=== PATIENT | male | born 1970 ===

== ENCOUNTER 2018-01-22 04:23 | Observation (INO) | payer OTHER ==
--- NOTE | 2018-01-22 04:39 | ED PDOC ---
Arrival/HPI - General Time Seen by Provider: 01/22/18 04:29 Historian: Patient - History of Present Illness Narrative History of Present Illness (Text): 01/22/18 04:32 47 year old male, with no significant past medical history, presents to the emergency department evaluation of pain and swelling to the mouth and left facial area. Patient state he wears dentures and removes them because of the pain. Patient states the swelling and pain extends to below his eye and neck area. He states he had a fever yesterday evening. Patient denies any chills, difficulty swallowing, chest pain, shortness of breath, nausea, vomiting, diarrhea, urinary symptoms, back pain, headache, dizziness, or any other complaints. Symptom Onset: Gradual Symptom Course: Worsening Activities at Onset: Light Context: Home Past Medical History - Provider Review Nursing Documentation Reviewed: Yes Family/Social History - Physician Review Nursing Documentation Reviewed: Yes Family/Social History: No Known Family HX Allergies/Home Meds Allergies/Adverse Reactions: Allergies No Known Allergies Allergy (Verified 01/22/18 04:37) Home Medications: Home Meds Medication Instructions Recorded Confirmed No Known Home Med 01/22/18 01/22/18 Review of Systems - Physician Review All systems were reviewed & negative as marked: Yes - Review of Systems Constitutional: Fevers. absent: Other (chills) ENT: Other ((+)pain and swelling to the mouth/left facial area. (-)difficulty swallowing) Respiratory: absent: SOB Cardiovascular: absent: Chest Pain Gastrointestinal: absent: Diarrhea, Nausea, Vomiting Genitourinary Male: absent: Dysuria, Frequency, Hematuria Musculoskeletal: absent: Back Pain Neurological: absent: Headache, Dizziness Physical Exam Vital Signs Reviewed: Yes Vital Signs Temp Pulse Resp BP Pulse Ox 01/22/18 04:37 98 F 91 H 19 134/103 H 98 Temperature: Afebrile Blood Pressure: Hypertensive Pulse: Regular Respiratory Rate: Normal Appearance: Positive for: Well-Appearing, Non-Toxic, Comfortable Pain Distress: None Mental Status: Positive for: Alert and Oriented X 3 - Systems Exam Head: Present: Atraumatic, Normocephalic, Other (Swelling to the left facial area) Pupils: Present: PERRL Extroacular Muscles: Present: EOMI Conjunctiva: Present: Normal Mouth: Present: Moist Mucous Membranes, Other (swelling noted to the left upper palate oral mucosa. ) Pharnyx: No: ERYTHEMA Neck: Present: Normal Range of Motion Respiratory/Chest: Present: Clear to Auscultation, Good Air Exchange. No: Respiratory Distress, Accessory Muscle Use Cardiovascular: Present: Regular Rate and Rhythm, Normal S1, S2. No: Murmurs Abdomen: No: Tenderness, Distention, Peritoneal Signs Back: Present: Normal Inspection Upper Extremity: Present: Normal Inspection. No: Cyanosis, Edema Lower Extremity: Present: Normal Inspection. No: Edema Neurological: Present: GCS=15, CN II-XII Intact, Speech Normal Skin: Present: Warm, Dry, Normal Color. No: Rashes Psychiatric: Present: Alert, Oriented x 3, Normal Insight, Normal Concentration Medical Decision Making ED Course and Treatment: 01/22/18 04:33 Impression: 47 year old male presents complaining of pain and swelling to the mouth and left facial area. Plan: -- Labs -- Reassess and disposition Progress Notes: 01/22/18 05:30 Case discussed with medical staffing coordinator and Dr. Keller who is aware and agrees with the plan. Accepts patient into hospitalist service. - Lab Interpretations Lab Results: 01/22/18 04:50 Lab Results 01/22/18 04:50: WBC 8.9, RBC 5.19, Hgb 15.0, Hct 43.0, MCV 82.9, MCH 28.9, MCHC 34.9, RDW 13.4, Plt Count 351, MPV 8.9 I have reviewed the lab results: Yes - Medication Orders Current Medication Orders: Clindamycin Phosphate 600 mg/ (Sodium Chloride) 54 mls @ 108 mls/hr IV STAT STA PRN Reason: Protocol Stop: 01/22/18 05:55 Discontinued Medications Ketorolac Tromethamine (Toradol) 30 mg IVP ONCE ONE Stop: 01/22/18 05:26 - Scribe Statement The provider has reviewed the documentation as recorded by the Josh Nieto Provider Scribe Attestation: All medical record entries made by the Scribe were at my direction and personally dictated by me. I have reviewed the chart and agree that the record accurately reflects my personal performance of the history, physical exam, medical decision making, and the department course for this patient. I have also personally directed, reviewed, and agree with the discharge instructions and disposition. Disposition/Present on Arrival - Present on Arrival Any Indicators Present on Arrival: No History of DVT/PE: No History of Uncontrolled Diabetes: No Urinary Catheter: No History of Decub. Ulcer: No History Surgical Site Infection Following: None - Disposition Have Diagnosis and Disposition been Completed?: Yes Diagnosis: Oral abscess, Facial abscess Disposition: HOSPITALIZED Disposition Time: 05:34 Patient Plan: Observation Condition: STABLE
[2018-01-22 05:17] LABS: MEAN CELL VOLUME 82.9 fl (80.0-105.0); MEAN CORPUSCULAR HEMOGLOBIN 28.9 pg (25.0-35.0); MEAN CORPUSCULAR HGB CONC 34.9 g/dl (31.0-37.0); MEAN PLATELET VOLUME 8.9 fl (7.0-11.0); RBC 5.19 10^6/uL (3.5-6.1); RED CELL DISTRIBUTION WIDTH 13.4 % (11.5-14.5); WHITE BLOOD COUNT 8.9 10^3/ul (4.5-11.0)
[2018-01-22 05:37] LABS: ALB/GLOB RATIO 1.2 (1.1-1.8)
--- NOTE | 2018-01-22 06:22 | CP.PCM.HP ---
<JimPeggy - Last Filed: 01/22/18 19:59> History of Present Illness - History of Present Illness History of Present Illness: HISTORY & PHYSICAL NOTE FOR HOSPITALIST TEAM Peggy Fernandez D.O. PGY-1 CC: "Gum and facial pain and swelling" 47 y/o M with pmhx of "dental infections" presents to ED with complaints of hard palate pain and swelling for the past 3 days. He reports feeling 9/10 dull pain in the superior L portion of his left involving the gum with onset beginning 3 days ago and progressively worsening. He noticed his face has been more swollen than usual, and is tender around L maxillary region. He reports that he noticed some blood from the area a few days ago. He reports he had subjective fevers and chills when the pain began. He has a history of "dental infections" involving the central incisors of the upper arch several years ago that required removal by his dentist. He wears dentures at home that he claims he cleans regularly with listerine. He denies any recent trauma to the area. He denies fevers, chills, headache, dizziness, nausea, vomiting, chest pain, palpitations, constipation, diarrhea. PMH: Denies All: NKDA PSH: Denies SH: 20 pack year cigarette history. Quit 5 years ago. Denies alcohol or illicit drug use. Works as truck driver instructor. Meds: None PMD: Doesn't see physician regularly Present on Admission - Present on Admission Any Indicators Present on Admission: No Review of Systems - Review of Systems Review of Systems: as per HPI Past Patient History - Infectious Disease Hx of Infectious Diseases: None - Past Social History Smoking Status: Former Smoker - PSYCHIATRIC Hx Substance Use: Yes (cocaine and marijuana) - SURGICAL HISTORY Hx Surgeries: No - ANESTHESIA Hx Anesthesia: No Meds Allergies/Adverse Reactions: Allergies Allergy/AdvReac Type Severity Reaction Status Date / Time No Known Allergies Allergy Verified 01/22/18 04:37 Physical Exam - Constitutional Appears: Well, Non-toxic, No Acute Distress - Head Exam Head Exam: NORMAL INSPECTION, NORMOCEPHALIC - Eye Exam Eye Exam: EOMI, Normal appearance - ENT Exam ENT Exam: Mucous Membranes Moist Additional comments: Swelling along anterior upper arch. No purulence or drainage noted. No tonsillar abscess/purulence noted. Maxillary tenderness to palpation. No tenderness to palpation along mandible - Neck Exam Neck exam: Positive for: Tenderness (submandibular). Negative for: Meningismus - Respiratory Exam Respiratory Exam: Clear to Auscultation Bilateral, NORMAL BREATHING PATTERN - Cardiovascular Exam Cardiovascular Exam: REGULAR RHYTHM, +S1, +S2 - GI/Abdominal Exam GI & Abdominal Exam: Soft. absent: Tenderness - Extremities Exam Extremities exam: Positive for: normal inspection. Negative for: calf tenderness - Back Exam Back exam: NORMAL INSPECTION - Neurological Exam Neurological exam: Alert, Oriented x3 - Psychiatric Exam Psychiatric exam: Normal Affect, Normal Mood - Skin Skin Exam: Dry, Normal Color, Warm Results - Vital Signs Recent Vital Signs: Last Vital Signs Temp 98 F 01/22/18 04:37 Pulse 91 H 01/22/18 04:37 Resp 19 01/22/18 04:37 BP 134/103 H 01/22/18 04:37 Pulse Ox 98 01/22/18 04:37 - Labs Result Diagrams: 01/22/18 04:50 01/22/18 04:50 Labs: Laboratory Results - last 24 hr 01/22/18 01/22/18 04:50 04:50 WBC 8.9 RBC 5.19 Hgb 15.0 Hct 43.0 MCV 82.9 MCH 28.9 MCHC 34.9 RDW 13.4 Plt Count 351 MPV 8.9 Albumin/Globulin Ratio 1.2 Assessment & Plan - Assessment and Plan (Free Text) Assessment: 47 y/o M with a history of dental infections involving central incisors. Pt wears dentures for the front teeth that he claims he cleans regularly with listerine. He received IV clindamycin in ED and is continuing treatment Plan: Upper palatal abscess Continue IV clindamycin f/u CBC f/u maxillofacial CT scan f/u blood cultures Consult infectious disease. f/u recs Consult ENT. f/u recs Diet/DVT/GI: dysphagia diet/LVX/Ptx <Candis Keller - Last Filed: 01/23/18 06:30> Results - Vital Signs Recent Vital Signs: Last Vital Signs Temp 98.4 F 01/22/18 14:00 Pulse 77 01/22/18 14:00 Resp 20 01/22/18 14:00 BP 130/88 01/22/18 14:00 Pulse Ox 98 01/22/18 14:00 - Labs Result Diagrams: 01/22/18 04:50 01/22/18 04:50 Labs: Laboratory Results - last 24 hr 01/22/18 01/22/18 01/22/18 04:50 04:50 04:50 Sodium 138 Potassium 4.7 Chloride 102 Carbon Dioxide 27 Anion Gap 14 BUN 21 Creatinine 0.9 Est GFR ( Amer) > 60 Est GFR (Non-Af Amer) > 60 Random Glucose 127 H Calcium 9.2 Phosphorus 3.1 Magnesium 2.4 H Total Bilirubin 0.4 AST 110 H ALT 86 H Alkaline Phosphatase 167 H Total Protein 7.4 Albumin 4.1 Globulin 3.3 Urine Opiates Screen Urine Methadone Screen Ur Barbiturates Screen Ur Phencyclidine Scrn Ur Amphetamines Screen U Benzodiazepines Scrn U Oth Cocaine Metabols U Cannabinoids Screen Hepatitis A IgM Ab Negative Hep Bs Antigen Negative Hep B Core IgM Ab Negative Hepatitis C Antibody Negative 01/22/18 12:27 Sodium Potassium Chloride Carbon Dioxide Anion Gap BUN Creatinine Est GFR ( Amer) Est GFR (Non-Af Amer) Random Glucose Calcium Phosphorus Magnesium Total Bilirubin AST ALT Alkaline Phosphatase Total Protein Albumin Globulin Urine Opiates Screen Negative Urine Methadone Screen Negative Ur Barbiturates Screen Negative Ur Phencyclidine Scrn Negative Ur Amphetamines Screen Negative U Benzodiazepines Scrn Negative U Oth Cocaine Metabols Positive H U Cannabinoids Screen Positive H Hepatitis A IgM Ab Hep Bs Antigen Hep B Core IgM Ab Hepatitis C Antibody Attending/Attestation - Attestation I have personally seen and examined this patient.: Yes I have fully participated in the care of the patient.: Yes I have reviewed all pertinent clinical information: Yes Notes (Text): 01/23/18 06:29 Patient was seen when he was in the ER. Medical record was reviewed. Agree with history , physical examination , assessment and plan.
[2018-01-22 06:39] LABS: ALBUMIN 4.1 g/dL (3.0-4.8); ALT/SGPT 86 U/L (7-56); AST/SGOT 110 U/L (17-59); BLOOD UREA NITROGEN 21 mg/dL (7-21); CALCIUM 9.2 mg/dL (8.4-10.5); GFR NON-AFRICAN AMERICAN > 60
[2018-01-22] MEDS: Sodium Chloride 0.9% 1,000 ML IV SCH (06:55)
--- NOTE | 2018-01-22 09:03 | CT ---
Date of service: 01/22/2018 PROCEDURE: CT MAXILLOFACIAL BONES WITHOUT CONTRAST HISTORY: r/o palatal abscess COMPARISON: None available. TECHNIQUE: Contiguous axial CT images of the maxillofacial bones were obtained. Coronal and sagittal reformats were generated. Radiation dose: Total exam DLP = 816.79 mGy-cm. This CT exam was performed using one or more of the following dose reduction techniques: Automated exposure control, adjustment of the mA and/or kV according to patient size, and/or use of iterative reconstruction technique. FINDINGS: NASAL BONES: Chronic appearing bilateral nasal bone fracture deformities.. There is a spur arising from the mid aspect of the nasal septum. Slight rightward deviation of the anterior nasal septum. ORBITS: Unremarkable. PARANASAL SINUSES/ MASTOIDS: Minimal mucosal thickening seen within a few ethmoid air cells as well as the left maxillary sinus. MAXILLA: No definitive evidence of obvious abscess seen within the oral cavity seen on this limited noncontrast exam. The bony maxilla appears intact.. Multiple missing teeth. Dental consultation is recommended MANDIBLE/ TEMPOROMANDIBULAR JOINTS: Unremarkable. SKULL BASE: Unremarkable. TEMPORAL BONES: Middle ears and mastoid grossly unremarkable. OTHER FINDINGS: Orbits and contents unremarkable. Globes intact and lenses appropriately located. There are no retrobulbar hemorrhages or collections. Optic nerves and extraocular musculature unremarkable. IMPRESSION: No definitive evidence of obvious abscess seen within the oral cavity seen on this limited noncontrast exam. The bony maxilla appears intact. Multiple missing teeth. Dental consultation is recommended Minimal mucosal thickening within a few right-sided ethmoid air cells and left maxillary sinus. Chronic appearing bilateral nasal bone fracture deformities.
[2018-01-22] MEDS: Enoxaparin 40 mg Syringe SC SCH (10:45)
--- NOTE | 2018-01-22 10:47 | CP.PCM.CON ---
<Whitley Porter - Last Filed: 01/22/18 12:28> History of Present Illness - History of Present Illness History of Present Illness: PGY3 resident ID consult note for Dr Barraza Reason for consult: hard palate abscess Patient is a 47 y/o Male with PMHx of dental infections presenting with swollen of the gum, upper lip and pain. Patient states he started to experience pain after eating on , decided to come in to the ED last night due to worsening in the pain, and inability to sleep. Admits to previous dental infections, saw dentist in the past and the infection was taking care of with outpatient antibiotics. Patient states he lost his insurance thus has not been able to follow up with dentist. Admits to subjective fever and chills yesterday. Admits to difficulty eating on Monday. Pt states since admission the pain and swelling has improved. PMHx: dental infections PSHx: none FMHx: non contributory Social: former smoker, quit 5 years ago, denies alcohol or illicit drug use. Home meds: none Allergy: NKDA Review of Systems - Constitutional Constitutional: Chills, Fever. absent: Lethargy, Malaise, Night Sweats, Snoring - EENT Eyes: absent: Blurred Vision Ears: absent: Dizziness Nose/Mouth/Throat: Dental Pain, Lip Swelling, Mouth Pain. absent: Nose Pain, Bleeding Gums, Dry Mouth, Dysphagia, Halitosis, Hoarsness, Sore Throat, Throat Swelling, Tongue Swelling, Facial Pain, Neck Mass - Cardiovascular Cardiovascular: absent: Chest Pain, Edema - Respiratory Respiratory: absent: Cough, Dyspnea, Hemoptysis, Wheezing - Gastrointestinal Gastrointestinal: absent: Abdominal Pain, Bloating, Nausea, Vomiting - Genitourinary Genitourinary: absent: Dysuria, Freq UTI - Musculoskeletal Musculoskeletal: absent: Abnormal Gait, Back Pain - Integumentary Integumentary: Swelling. absent: Erythema, Rash, Jaundice - Neurological Neurological: absent: Dizziness, Headaches - Psychiatric Psychiatric: absent: Anxiety, Change in Appetite - Endocrine Endocrine: absent: Polyphagia, Polyuria Past Patient History - Infectious Disease Hx of Infectious Diseases: None - Past Social History Smoking Status: Former Smoker Alcohol: None Drugs: Denies Home Situation {Lives}: With Family - PSYCHIATRIC Hx Substance Use: Yes (cocaine and marijuana) - SURGICAL HISTORY Hx Surgeries: No - ANESTHESIA Hx Anesthesia: No Meds Allergies/Adverse Reactions: Allergies Allergy/AdvReac Type Severity Reaction Status Date / Time No Known Allergies Allergy Verified 01/22/18 04:37 - Medications Medications: Current Medications Enoxaparin Sodium (Lovenox) 40 mg SC DAILY CECIL PRN Reason: Protocol Sodium Chloride (Sodium Chloride 0.9%) 1,000 mls @ 50 mls/hr IV .Q20H CECIL Last Admin: 01/22/18 06:55 Dose: 50 mls/hr Ampicillin Sodium/Sulbactam (Sodium 3 gm/ Sodium Chloride) 100 mls @ 200 mls/ hr IVPB Q6 CECIL PRN Reason: Protocol Pantoprazole Sodium (Protonix Inj) 40 mg IVP DAILY [facility] Physical Exam - Constitutional Appears: No Acute Distress, Older Than Stated Age - Head Exam Head Exam: ATRAUMATIC, NORMAL INSPECTION, NORMOCEPHALIC Additional comments: Multiple missing incisors, + mild erythema, no edema, no purulent drainage noted. - Eye Exam Eye Exam: Normal appearance, PERRL. absent: Scleral icterus - ENT Exam ENT Exam: Mucous Membranes Moist - Neck Exam Neck exam: Positive for: Normal Inspection - Respiratory Exam Respiratory Exam: Clear to Auscultation Bilateral, NORMAL BREATHING PATTERN. absent: Rales, Rhonchi, Wheezes, Respiratory Distress, Stridor - Cardiovascular Exam Cardiovascular Exam: REGULAR RHYTHM, RRR, +S1, +S2. absent: Gallop, JVD, Rubs - GI/Abdominal Exam GI & Abdominal Exam: Normal Bowel Sounds, Soft. absent: Distended, Firm, Rigid , Tenderness - Extremities Exam Extremities exam: Positive for: normal inspection - Back Exam Back exam: NORMAL INSPECTION - Neurological Exam Neurological exam: Alert, Oriented x3 - Psychiatric Exam Psychiatric exam: Normal Affect, Normal Mood - Skin Skin Exam: Dry, Warm Results - Vital Signs Recent Vital Signs: Last Vital Signs Temp 98.6 F 01/22/18 07:23 Pulse 72 01/22/18 07:23 Resp 16 01/22/18 07:23 BP 135/80 01/22/18 07:23 Pulse Ox 99 01/22/18 07:23 - Labs Result Diagrams: 01/22/18 04:50 01/22/18 04:50 Assessment & Plan - Assessment and Plan (Free Text) Assessment: 47 y/o with dental infections with questionable abscess CT of [facility] w/o contrast with no definitive evidence of obvious abscess seen within the oral cavity, multiple missing teeth. Chronic appearing bilateral nasal bone fracture deformities. Plan: 1. Dental cellulites r/o abscess - CT of the [facility] with no contrast, thus unable to see any abscesses - Currently afebrile, no leukocytosis, edema improved with abx, - HIV, blood cultures sent - Continue Unasyn for now, may switch to Augmentin when clinically stable for discharge. - Patient will need to follow up with dentist 2) Transaminitis - hepatitis panel sent, consider abdominal ultrasound. Patient seen, examined and case discussed with Dr Barraza. - Date & Time Date: 01/22/18 Time: 09:50 <Guanako Barraza - Last Filed: 01/22/18 22:33> Meds - Medications Medications: Current Medications Acetaminophen (Tylenol 325mg Tab) 650 mg PO Q4H PRN PRN Reason: Pain, moderate (4-7) Last Admin: 01/22/18 21:03 Dose: 650 mg Enoxaparin Sodium (Lovenox) 40 mg SC DAILY CECIL PRN Reason: Protocol Last Admin: 01/22/18 10:45 Dose: 40 mg Sodium Chloride (Sodium Chloride 0.9%) 1,000 mls @ 50 mls/hr IV .Q20H CECIL Last Admin: 01/22/18 06:55 Dose: 50 mls/hr Clindamycin Phosphate (Clindamycin 300 Mg/50 Ml-D5w) 300 mg in 50 mls @ 106 mls /hr IVPB Q8 CECIL PRN Reason: Protocol Last Admin: 01/22/18 21:03 Dose: 106 mls/hr Pantoprazole Sodium (Protonix Inj) 40 mg IVP DAILY CECIL Last Admin: 01/22/18 10:46 Dose: 40 mg Tramadol HCl (Ultram) 50 mg PO Q8H PRN PRN Reason: Pain, severe (8-10) Last Admin: 01/22/18 19:14 Dose: 50 mg Results - Vital Signs Recent Vital Signs: Last Vital Signs Temp 98.4 F 01/22/18 14:00 Pulse 77 01/22/18 14:00 Resp 20 01/22/18 14:00 BP 130/88 01/22/18 14:00 Pulse Ox 98 01/22/18 14:00 - Labs Result Diagrams: 01/22/18 04:50 01/22/18 04:50 Labs: Laboratory Results - last 24 hr 01/22/18 12:27 Urine Opiates Screen Negative Urine Methadone Screen Negative Ur Barbiturates Screen Negative Ur Phencyclidine Scrn Negative Ur Amphetamines Screen Negative U Benzodiazepines Scrn Negative U Oth Cocaine Metabols Positive H U Cannabinoids Screen Positive H Assessment & Plan - Assessment and Plan (Free Text) Plan: Infectious diseases attending physician addendum Patient discussed with medical insurance claims specialist. I have reviewed the pertinent clinical information. I agree with the above findings, assessment and plan and in addition, will continue Unasyn, R/O dental abscess. Follow up ENT evaluation. Reviewed maxillofacial CT which was not specific for abscess.
[2018-01-22 13:04] LABS: BARBITURATES, UR NEGATIVE (NEGATIVE); BENZODIAZEPINES, UR NEGATIVE (NEGATIVE); OPIATES, UR NEGATIVE (NEGATIVE); PHENCYCLIDINE, UR NEGATIVE (NEGATIVE)
[2018-01-22 15:00] VITALS: RESP 20; BMI 30.5
[2018-01-22 17:33] LABS: HEPATITIS B SURFACE AG Negative (NEGATIVE)
[2018-01-22 17:39] LABS: HEPATITIS A IGM NEGATIVE (NEGATIVE); HEPATITIS B CORE AB NEGATIVE (NEGATIVE)
[2018-01-22 17:51] LABS: HEPATITIS C ANTIBODY NEGATIVE (NEGATIVE)
[2018-01-22] MEDS: Clindamycin in D5W 300 MG/50 ML BAG IVPB SCH (21:03)
[2018-01-22] MEDS ORDERED: Clindamycin 300 MG in Sodium Chloride 0.9% 100 ML IVPB SCH (22:00)
--- NOTE | 2018-01-23 05:24 | CON ---
DATE: 01/22/2018 HISTORY OF PRESENT ILLNESS: A 47-year-old male seen in room 578 secondary to a facial cellulitis and facial pain, seen as a request from Dr. Silvino Arias is seen with a hard palate swelling anterior on the left, most proximal approximately 2 cm of swelling with a developing cellulitis of the mid face on the left. This has been progressing over a period of time with poor dental care. Patient states that he has had no insurance and is now working, was brought to the OR because of facial abscess. White count of 8.9, H and H is 15 and 43, 351 platelets. Calcium 138, 4.7, 102, 27, 21.9, and 127.8. This 47-year-old male with poor dental care has a dental caries at the site of increasing swelling and facial cellulitis, is over IV antibiotics as discussed. I would recommend switching from ampicillin to clindamycin 300 mg every 8, facial swelling with warm compresses and pain medication regimen. Tramadol secondary to history is recommended at this time. Patient recommended 24 to 48 hours of IV therapy to follow facial cellulitis. This is possible accumulation. RECOMMENDATION: For a consultation from Dental/Oral surgery for possible extraction of a partial tooth noted at the abscess site on the hard palate. Patient will be followed and IV therapy continued and monitored to see the progress after [address] into chart. Rommel Taylor DO
--- NOTE | 2018-01-23 06:07 | CP.PCM.PN ---
<Kumar Montoya - Last Filed: 01/23/18 15:55> Subjective - Date & Time of Evaluation Date of Evaluation: 01/23/18 Time of Evaluation: 05:36 - Subjective Subjective: Kumar Montoya DO PGY-1, Internal Medicine Resident. Hospitalist Progress Note Patient seen and examined at bedside. Patient is resting in bed, awake and oriented. No acute events overnight. He reported that facial pain and swelling are getting better.He is able to tolerate diet. Patient denied palpitation, fever, chills or change in bowel movement, N/V Objective - Vital Signs/Intake and Output Vital Signs (last 24 hours): Temp Pulse Resp BP Pulse Ox 98.4 F 77 20 130/88 98 01/22/18 14:00 01/22/18 14:00 01/22/18 14:00 01/22/18 14:00 01/22/18 14:00 Intake and Output: 01/22/18 01/23/18 18:59 06:59 Intake Total 360 Balance 360 - Medications Medications: Current Medications Acetaminophen (Tylenol 325mg Tab) 650 mg PO Q4H PRN PRN Reason: Pain, moderate (4-7) Last Admin: 01/22/18 21:03 Dose: 650 mg Enoxaparin Sodium (Lovenox) 40 mg SC DAILY CECIL; Protocol Last Admin: 01/22/18 10:45 Dose: 40 mg Sodium Chloride (Sodium Chloride 0.9%) 1,000 mls @ 50 mls/hr IV .Q20H CECIL Last Admin: 01/22/18 06:55 Dose: 50 mls/hr Clindamycin Phosphate (Clindamycin 300 Mg/50 Ml-D5w) 300 mg in 50 mls @ 106 mls/hr IVPB Q8 CECIL; Protocol Last Admin: 01/22/18 21:03 Dose: 106 mls/hr Pantoprazole Sodium (Protonix Inj) 40 mg IVP DAILY CECIL Last Admin: 01/22/18 10:46 Dose: 40 mg Tramadol HCl (Ultram) 50 mg PO Q8H PRN PRN Reason: Pain, severe (8-10) Last Admin: 01/22/18 19:14 Dose: 50 mg - Labs Labs: 01/22/18 04:50 01/22/18 04:50 - Constitutional Appears: Well, No Acute Distress - Head Exam Head Exam: ATRAUMATIC, NORMOCEPHALIC - Eye Exam Eye Exam: EOMI, Normal appearance, PERRL Pupil Exam: NORMAL ACCOMODATION, PERRL - ENT Exam Additional comments: left upper maxillary necrotic lesion. improving since seen on admission. no pus or drainage noted left side facial swelling improving TMJ intact upper frontal teeth missing hard palate lesion: intact, no drainage, no erythema lymphadenopathy in left submandibular gland, improving - Neck Exam Neck Exam: Full ROM, Lymphadenopathy, Normal Inspection - Respiratory Exam Respiratory Exam: Clear to Ausculation Bilateral, NORMAL BREATHING PATTERN - Cardiovascular Exam Cardiovascular Exam: REGULAR RHYTHM, +S1, +S2. absent: Murmur - GI/Abdominal Exam GI & Abdominal Exam: Soft, Normal Bowel Sounds. absent: Tenderness - Extremities Exam Extremities Exam: Full ROM, Normal Capillary Refill, Normal Inspection. absent: Joint Swelling, Pedal Edema - Back Exam Back Exam: NORMAL INSPECTION - Neurological Exam Neurological Exam: Alert, Awake, CN II-XII Intact, Normal Gait, Oriented x3 - Psychiatric Exam Psychiatric exam: Normal Affect, Normal Mood - Skin Skin Exam: Dry, Intact, Normal Color, Warm Assessment and Plan - Assessment and Plan (Free Text) Assessment: 47 y/o male with a history of dental infections involving central incisors. Pt wears dentures for the front teeth that he claims he cleans regularly with listerine. He received IV clindamycin in ED and is continuing treatment Plan: Left facial swelling patient afebrile. swelling improving. hard palate intact lesion on exam maxillofacial CT: no evidence of abscess, bony maxilla intact Continue IV clindamycin blood culture x2 with no growth after 24 hours Per ID consult continue clindamycin, and follow up with ENT for further recommendations Per ENT consult: continue IV clindamycin for 48-72 hours before surgical excision of the embedded partial tooth Tylenol for pain prn Tramadol for severe pain prn H/O drug use UDS: positive for cocine and cannabinoids HIV negative hepatitis panel normal Prophylaxis DVT ppx: Lovenox GI ppx: SCD Regular diet Case reviewed and plan discussed with attending Dr Padilla <Ana Padilla R - Last Filed: 01/24/18 15:54> Objective - Vital Signs/Intake and Output Vital Signs (last 24 hours): Temp Pulse Resp BP Pulse Ox 97.6 F 58 L 20 143/106 H 98 01/24/18 07:56 01/24/18 07:56 01/24/18 07:56 01/24/18 07:56 01/24/18 07:56 Intake and Output: 01/24/18 01/24/18 06:59 18:59 Intake Total 360 Balance 360 - Labs Labs: 01/23/18 07:30 01/23/18 07:30 Attending/Attestation - Attestation I have personally seen and examined this patient.: Yes I have fully participated in the care of the patient.: Yes I have reviewed all pertinent clinical information, including history, physical exam and plan: Yes Notes (Text): Patient seen and examined by me at 12:55PM with resident 01/23/18. Case including HPI, physical exam, and assessment and plan discussed with resident. Agree with above with following additions/corrections. Patient is a 47-year-old male with past medical history significant for dental infections that presented to the emergency room with gum and facial pain and swelling. Patient states that he is still having pain on the left side of his upper gum as well as left facial pain. However this has improved since admission. Patient has been tolerating diet. He denies any headaches or dizziness. No fevers or chills. No nausea, vomiting, or abdominal pain. No chest pain or shortness of breath. No dysuria. No diarrhea or constipation. Physical exam: General: Awake and alert lying in bed in no acute distress HEENT: Normocephalic, atraumatic. Pupils equal reactive. Extraocular muscles intact. No scleral icterus. Oropharynx is pink and moist. Positive small ulcer upper left gum. Neck is supple. Cardiovascular: Normal rhythm. Normal S1, S2. No murmurs, rubs, or gallops taylor reciated Pulmonary: Normal respiratory effort. No rhonchi, rales, or wheezing appreciated. Gastrointestinal: Soft, nondistended. Nontender. Positive bowel sounds all 4 quadrants, no guarding. Musculoskeletal: Moves all extremities, no calf tenderness, no edema appreciated Central nervous system: AAOx 3, CN 2-12 grossly intact Dermatologic: Skin warm and dry. Assessment and plan: Patient is a 47-year-old male with past medical history significant for dental infections that presented to the emergency room with gum and facial pain and swelling. 1. Left facial pain, gum pain/infection. Maxillofacial CT per radiologist showed no tinnitus evidence of obvious abscess seen within the oral cavity, bony maxilla appears intact, multiple missing teeth, minimal mucosal thickening within a few right sided ethmoid air cells and left maxillary sinus, chronic appearing bilateral nasal bone fracture deformities. ENT consulted, follow-up recommendations. ID following, conditions appreciated. Continue with Unasyn. Patient may be switched to Augmentin when ready for discharge per ID. Blood cultures with no growth so far. Patient is tolerating regular diet. 2. Transaminitis. Unclear etiology. May be secondary to drug abuse. Resolving. Continue to monitor. 3. Cocaine and marijuana abuse. Patient counseled at length on cessation. 4. Patient is a full code. Case discussed in detail with the patient regarding current diagnosis and treatment plan.
[2018-01-23] MEDS: Clindamycin in D5W 300 MG/50 ML BAG IVPB SCH ×3 (06:10→21:33)
--- NOTE | 2018-01-23 06:54 | CP.PCM.PN ---
<Whitley Porter - Last Filed: 01/23/18 15:33> Subjective - Date & Time of Evaluation Date of Evaluation: 01/23/18 Time of Evaluation: 07:25 - Subjective Subjective: PGY-3 resident ID progress note for Dr Barraza Patient with no events overnight. Able to tolerate po. No fever or chills. Mouth pain improved. Objective - Vital Signs/Intake and Output Vital Signs (last 24 hours): Temp Pulse Resp BP Pulse Ox 98.4 F 77 20 130/88 98 01/22/18 14:00 01/22/18 14:00 01/22/18 14:00 01/22/18 14:00 01/22/18 14:00 Intake and Output: 01/22/18 01/23/18 18:59 06:59 Intake Total 360 Balance 360 - Medications Medications: Current Medications Acetaminophen (Tylenol 325mg Tab) 650 mg PO Q4H PRN PRN Reason: Pain, moderate (4-7) Last Admin: 01/22/18 21:03 Dose: 650 mg Enoxaparin Sodium (Lovenox) 40 mg SC DAILY CECIL; Protocol Last Admin: 01/22/18 10:45 Dose: 40 mg Sodium Chloride (Sodium Chloride 0.9%) 1,000 mls @ 50 mls/hr IV .Q20H CECIL Last Admin: 01/22/18 06:55 Dose: 50 mls/hr Clindamycin Phosphate (Clindamycin 300 Mg/50 Ml-D5w) 300 mg in 50 mls @ 106 mls/hr IVPB Q8 CECIL; Protocol Last Admin: 01/23/18 06:10 Dose: 106 mls/hr Pantoprazole Sodium (Protonix Inj) 40 mg IVP DAILY CECIL Last Admin: 01/22/18 10:46 Dose: 40 mg Tramadol HCl (Ultram) 50 mg PO Q8H PRN PRN Reason: Pain, severe (8-10) Last Admin: 01/22/18 19:14 Dose: 50 mg - Labs Labs: 01/22/18 04:50 01/22/18 04:50 - Constitutional Appears: No Acute Distress - Head Exam Head Exam: ATRAUMATIC, NORMAL INSPECTION, NORMOCEPHALIC - Eye Exam Eye Exam: Normal appearance - ENT Exam ENT Exam: Mucous Membranes Moist Additional comments: Oral cavity with multiple missing teeth, poor dentition, discoloration around the remaining incisors, mild hard plate erythema. - Neck Exam Neck Exam: absent: Lymphadenopathy - Respiratory Exam Respiratory Exam: Clear to Ausculation Bilateral, NORMAL BREATHING PATTERN. absent: Rhonchi, Wheezes, Respiratory Distress, Stridor - Cardiovascular Exam Cardiovascular Exam: REGULAR RHYTHM, +S1, +S2. absent: RRR, Murmur - GI/Abdominal Exam GI & Abdominal Exam: Soft, Normal Bowel Sounds. absent: Distended, Firm, Guarding, Rigid, Tenderness - Extremities Exam Extremities Exam: Normal Inspection. absent: Pedal Edema - Back Exam Back Exam: NORMAL INSPECTION - Neurological Exam Neurological Exam: Alert, Awake, Oriented x3 - Psychiatric Exam Psychiatric exam: Normal Affect, Normal Mood - Skin Skin Exam: Dry, Warm Assessment and Plan - Assessment and Plan (Free Text) Assessment: 47 y/o with dental infections and questionable hard palate abscess CT of [facility] w/o contrast with no definitive evidence abscess Nasal bone fracture seen Poor dentition Multiple missing teeth Polysubstance abuse including cocaine and cannabis. Transaminitis resolving Plan: Remains afebrile and no leukocytosis. Blood cultures x2 with no growth after 24 hours. Patient will need dentist or oral surgery referral once discharged Unasyn was changed to clindamicyn as per ENT, continue clindamycin, and follow up with ENT for further recommendations. HIV negative and hepatitis panel normal. Patient seen, examined and case discussed with Dr Barraza. <Guanako Barraza - Last Filed: 01/23/18 20:05> Objective - Vital Signs/Intake and Output Vital Signs (last 24 hours): Temp Pulse Resp BP Pulse Ox 98.2 F 74 20 138/95 H 100 01/23/18 14:00 01/23/18 14:00 01/23/18 14:00 01/23/18 14:00 01/23/18 14:00 - Medications Medications: Current Medications Acetaminophen (Tylenol 325mg Tab) 650 mg PO Q4H PRN PRN Reason: Pain, moderate (4-7) Last Admin: 01/22/18 21:03 Dose: 650 mg Enoxaparin Sodium (Lovenox) 40 mg SC DAILY CECIL; Protocol Last Admin: 01/23/18 10:20 Dose: 40 mg Sodium Chloride (Sodium Chloride 0.9%) 1,000 mls @ 50 mls/hr IV .Q20H CECIL Last Admin: 01/22/18 06:55 Dose: 50 mls/hr Clindamycin Phosphate (Clindamycin 300 Mg/50 Ml-D5w) 300 mg in 50 mls @ 106 ml s/hr IVPB Q8 CECIL; Protocol Last Admin: 01/23/18 15:04 Dose: 106 mls/hr Pantoprazole Sodium (Protonix Inj) 40 mg IVP DAILY CECIL Last Admin: 01/23/18 10:20 Dose: 40 mg Tramadol HCl (Ultram) 50 mg PO Q8H PRN PRN Reason: Pain, severe (8-10) Last Admin: 01/23/18 17:13 Dose: 50 mg - Labs Labs: 01/23/18 07:30 01/23/18 07:30 Assessment and Plan - Assessment and Plan (Free Text) Plan: Infectious diseases attending physician addendum Patient discussed with medical record coder. I have reviewed the pertinent clinical information. I agree with the above findings, assessment and plan and in addition, will continue clindamycin for probable dental abscess. Reviewed ENT evaluation. Reviewed maxillofacial CT which was not specific for abscess but clinically has manifestations of abscess.
[2018-01-23 08:05] LABS: BASO # 0.02 K/mm3 (0.0-2.0); BASO % 0.2 % (0.0-3.0); EOS # 0.3 (0.0-0.7); EOS % 3.1 % (1.5-5.0); GRAN # 4.57 (1.4-6.5); GRAN % 55.8 % (50.0-68.0); HEMOGLOBIN 14.5 g/dL (14.0-18.0); LYMPH # 2.8 (1.2-3.4); LYMPH % 34.4 % (22.0-35.0); MEAN CELL VOLUME 82.3 fl (80.0-105.0); MEAN CORPUSCULAR HEMOGLOBIN 28.5 pg (25.0-35.0); MEAN CORPUSCULAR HGB CONC 34.6 g/dl (31.0-37.0); MEAN PLATELET VOLUME 8.9 fl (7.0-11.0); MONO # 0.5 (0.1-0.6); MONO % 6.5 % (1.0-6.0); RBC 5.09 10^6/uL (3.5-6.1); RED CELL DISTRIBUTION WIDTH 13.3 % (11.5-14.5); WHITE BLOOD COUNT 8.2 10^3/ul (4.5-11.0)
[2018-01-23 08:11] LABS: ALB/GLOB RATIO 1.2 (1.1-1.8); ALBUMIN 3.9 g/dL (3.0-4.8); ALT/SGPT 76 U/L (7-56); AST/SGOT 55 U/L (17-59); BLOOD UREA NITROGEN 17 mg/dL (7-21); CALCIUM 9.4 mg/dL (8.4-10.5); GFR NON-AFRICAN AMERICAN > 60
[2018-01-23] MEDS: Enoxaparin 40 mg Syringe SC SCH (10:20)
[2018-01-23] MEDS: Sodium Chloride 0.9% 1,000 ML IV SCH (21:33)
[2018-01-23 22:42] VITALS: TEMP 97.6
[2018-01-24] MEDS: Clindamycin in D5W 300 MG/50 ML BAG IVPB SCH (05:13)
[2018-01-24] MEDS: Sodium Chloride 0.9% 1,000 ML IV SCH (05:17)
[2018-01-24] MEDS ORDERED: Pantoprazole 40 mg EC Tab PO SCH (06:00)
--- NOTE | 2018-01-24 06:16 | CP.PCM.PN ---
Objective - Vital Signs/Intake and Output Vital Signs (last 24 hours): Temp Pulse Resp BP Pulse Ox 97.6 F 74 20 138/95 H 96 01/23/18 22:41 01/23/18 14:00 01/23/18 22:41 01/23/18 14:00 01/23/18 22:41 Intake and Output: 01/23/18 01/24/18 18:59 06:59 Intake Total 360 Balance 360 - Medications Medications: Current Medications Acetaminophen (Tylenol 325mg Tab) 650 mg PO Q4H PRN PRN Reason: Pain, moderate (4-7) Last Admin: 01/22/18 21:03 Dose: 650 mg Enoxaparin Sodium (Lovenox) 40 mg SC DAILY CECIL; Protocol Last Admin: 01/23/18 10:20 Dose: 40 mg Sodium Chloride (Sodium Chloride 0.9%) 1,000 mls @ 50 mls/hr IV .Q20H CECIL Last Admin: 01/24/18 05:17 Dose: Not Given Clindamycin Phosphate (Clindamycin 300 Mg/50 Ml-D5w) 300 mg in 50 mls @ 106 mls/hr IVPB Q8 CECIL; Protocol Last Admin: 01/24/18 05:13 Dose: 106 mls/hr Pantoprazole Sodium (Protonix Ec Tab) 40 mg PO 0600 CECIL Last Admin: 01/24/18 05:25 Dose: 40 mg Tramadol HCl (Ultram) 50 mg PO Q8H PRN PRN Reason: Pain, severe (8-10) Last Admin: 01/24/18 03:01 Dose: 50 mg - Labs Labs: 01/23/18 07:30 01/23/18 07:30
[2018-01-24 07:57] VITALS: BP 143/106; PULSE 58; O2SAT 98
[2018-01-24] MEDS: Enoxaparin 40 mg Syringe SC SCH (09:48)
--- NOTE | 2018-01-24 12:17 | CP.PCM.DIS ---
Provider - Provider Date of Admission: 01/22/18 05:29 Attending physician: Ana Padilla DO Primary care physician: Dr Ocampo Consults: ENT ID Time Spent in preparation of Discharge (in minutes): 35 Hospital Course - Lab Results Lab Results: Micro Results 01/22/18 06:02 Blood Blood Culture - Preliminary NO GROWTH AFTER 48 HOURS 01/22/18 05:30 Blood Blood Culture - Preliminary NO GROWTH AFTER 48 HOURS Most Recent Lab Values WBC 8.2 10^3/ul (4.5-11.0) 01/23/18 07:30 RBC 5.09 10^6/uL (3.5-6.1) 01/23/18 07:30 Hgb 14.5 g/dL (14.0-18.0) 01/23/18 07:30 Hct 41.9 % (42.0-52.0) L 01/23/18 07:30 MCV 82.3 fl (80.0-105.0) 01/23/18 07:30 MCH 28.5 pg (25.0-35.0) 01/23/18 07:30 MCHC 34.6 g/dl (31.0-37.0) 01/23/18 07:30 RDW 13.3 % (11.5-14.5) 01/23/18 07:30 Plt Count 358 10^3/uL (120.0-450.0) 01/23/18 07:30 MPV 8.9 fl (7.0-11.0) 01/23/18 07:30 Gran % 55.8 % (50.0-68.0) 01/23/18 07:30 Lymph % (Auto) 34.4 % (22.0-35.0) 01/23/18 07:30 [place] % (Auto) 6.5 % (1.0-6.0) H 01/23/18 07:30 Eos % (Auto) 3.1 % (1.5-5.0) 01/23/18 07:30 Baso % (Auto) 0.2 % (0.0-3.0) 01/23/18 07:30 Gran # 4.57 (1.4-6.5) 01/23/18 07:30 Lymph # (Auto) 2.8 (1.2-3.4) 01/23/18 07:30 [place] # (Auto) 0.5 (0.1-0.6) 01/23/18 07:30 Eos # (Auto) 0.3 (0.0-0.7) 01/23/18 07:30 Baso # (Auto) 0.02 K/mm3 (0.0-2.0) 01/23/18 07:30 Sodium 140 mmol/L (132-148) 01/23/18 07:30 Potassium 5.0 mmol/L (3.6-5.0) 01/23/18 07:30 Chloride 103 mmol/L (98-107) 01/23/18 07:30 Carbon Dioxide 29 mmol/L (21-33) 01/23/18 07:30 Anion Gap 13 (10-20) 01/23/18 07:30 BUN 17 mg/dL (7-21) 01/23/18 07:30 Creatinine 0.9 mg/dl (0.8-1.5) 01/23/18 07:30 Est GFR ( Amer) > 60 01/23/18 07:30 Est GFR (Non-Af Amer) > 60 01/23/18 07:30 Random Glucose 126 mg/dL (70-110) H 01/23/18 07:30 Calcium 9.4 mg/dL (8.4-10.5) 01/23/18 07:30 Phosphorus 3.1 mg/dL (2.5-4.5) 01/22/18 04:50 Magnesium 2.4 mg/dL (1.7-2.2) H 01/22/18 04:50 Total Bilirubin 0.2 mg/dL (0.2-1.3) 01/23/18 07:30 AST 55 U/L (17-59) 01/23/18 07:30 ALT 76 U/L (7-56) H 01/23/18 07:30 Alkaline Phosphatase 122 U/L (38-126) 01/23/18 07:30 Total Protein 7.2 g/dL (5.8-8.3) 01/23/18 07:30 Albumin 3.9 g/dL (3.0-4.8) 01/23/18 07:30 Globulin 3.3 gm/dL 01/23/18 07:30 Albumin/Globulin Ratio 1.2 (1.1-1.8) 01/23/18 07:30 Urine Opiates Screen Negative (NEGATIVE) 01/22/18 12:27 Urine Methadone Screen Negative (NEGATIVE) 01/22/18 12:27 Ur Barbiturates Screen Negative (NEGATIVE) 01/22/18 12:27 Ur Phencyclidine Scrn Negative (NEGATIVE) 01/22/18 12:27 Ur Amphetamines Screen Negative (NEGATIVE) 01/22/18 12:27 U Benzodiazepines Scrn Negative (NEGATIVE) 01/22/18 12:27 U Oth Cocaine Metabols Positive (NEGATIVE) H 01/22/18 12:27 U Cannabinoids Screen Positive (NEGATIVE) H 01/22/18 12:27 Hepatitis A IgM Ab Negative (NEGATIVE) 01/22/18 04:50 Hep Bs Antigen Negative (NEGATIVE) 01/22/18 04:50 Hep B Core IgM Ab Negative (NEGATIVE) 01/22/18 04:50 Hepatitis C Antibody Negative (NEGATIVE) 01/22/18 04:50 HIV 1&2 Ag/Ab, 4th Gen Nonreactive (Nonreactive) 01/22/18 06:56 - Hospital Course Hospital Course: This is 47 y/o male with a history of dental infections involving central incisors who presented to the ED with gum and facial pain and swelling. Maxillofacial CT showed no evidence of abscess, bony maxilla intact, multiple missing teeth, minimal mucosal thickening within a few right sided ethmoid air cells and left maxillary sinus, chronic appearing bilateral nasal bone fracture deformities. Patient admitted for facial pain and swelling. ENT consulted and recommended IV clindamycin for 48-72 hours and the patient should see a dentist for surgical excision of the embedded partial tooth. Patient was afebrile ffor 48 hours, swelling improved, no leukocytosis, patient was clinically stable. ENT recommended discharging today with clindamycin PO for 7 days and patient to see dentist for further management of his dental/gum disease. Patient is medically optimized for discharge today with additional discharge instructions as mentioned below. On discharge: Please follow up with the [facility] for post hospitalization follow up. An appointment has been made for you in advance and is scheduled for MondayJanuary 29 at 3:30pm. Please discuss all medical issues addressed during your admission. Please bring ID and any [facility] paperwork you have been provided. Please follow up with a dentist of your choice as an outpatient to discuss your dental health issues. If you do not already have a dentist, one can be referred to you at your appointment at the [facility]. You have been prescribed two new medications as follows: 1. Clindamycin (antibiotic)-Please take this medication three times per day for the next seven days. Please take this course until completion. 2. Bacillus (probiotic)-Please take this medication twice per day to avoid any stomach issues with your antibiotic use. Please take all medications as prescribed. Please refrain from cocaine use as discussed during your admission. Discharge Exam - Head Exam Head Exam: ATRAUMATIC, NORMOCEPHALIC - Eye Exam Eye Exam: Normal appearance, PERRL Pupil Exam: NORMAL ACCOMODATION - ENT Exam ENT Exam: Mucous Membranes Moist, Normal Exam, Normal Oropharynx - Neck Exam Neck exam: Full Rom, Normal Inspection - Respiratory Exam Respiratory Exam: Clear to PA & Lateral, NORMAL BREATHING PATTERN - Cardiovascular Exam Cardiovascular Exam: REGULAR RHYTHM, +S1, +S2 - GI/Abdominal Exam GI & Abdominal Exam: Normal Bowel Sounds - Extremities Exam Extremities exam: normal capillary refill, pedal pulses present - Back Exam Back exam: FULL ROM, NORMAL INSPECTION - Neurological Exam Neurological exam: Alert, CN II-XII Intact, Normal Gait, Oriented x3, Reflexes Normal - Psychiatric Exam Psychiatric exam: Normal Affect, Normal Mood - Skin Skin Exam: Dry, Intact, Normal Color, Warm Discharge Plan - Discharge Medications Prescriptions: Clindamycin [Cleocin] 300 mg PO TID #21 cap Lactobacillus Acidophilus [Acidophilus Lactobacillus] 1 each PO BID #20 capsule - Follow Up Plan Condition: STABLE Disposition: HOME/ ROUTINE Instructions: Smoking: Not Just Harmful to Your Lungs and Heart, Dangers of Se condhand Smoke, Clindamycin (Systemic), Dental Pain (DC), Lactobacillus, How to Care for Your Mouth and Teeth, Abscess (GEN) Additional Instructions: Please follow up with the [facility] for post hospitalization follow up. An appointment has been made for you in advance and is scheduled for MondayJanuary 29 at 3:30pm. Please discuss all medical issues addressed during your admission. Please bring ID and any [facility] paperwork you have been provided. Please follow up with a dentist of your choice as an outpatient to discuss your dental health issues. If you do not already have a dentist, one can be referred to you at your appointment at the [facility]. You have been prescribed two new medications as follows: 1. Clindamycin (antibiotic)-Please take this medication three times per day for the next seven days. Please take this course until completion. 2. Bacillus (probiotic)-Please take this medication twice per day to avoid any stomach issues with your antibiotic use. Please take all medications as prescribed. Please refrain from cocaine use as discussed during your admission. Referrals: [facility] [place]
--- NOTE | 2018-01-25 01:23 | PN ---
DATE: 01/24/2018 SUBJECTIVE: Patient was seen earlier this morning in room 578, bed 1. No fevers. No chills. PHYSICAL EXAMINATION: VITAL SIGNS: Temperature is 97, blood pressure is 140/100, respiratory rate of 18. HEENT: Unremarkable. NECK: Supple. LUNGS: Decreased breath sounds. HEART: Normal S1 and S2. ABDOMEN: Soft and nontender. LABORATORY EXAMINATION: Reveals the patient's white count is 8.2. Chemistries are noted. Microbiology reveals the blood cultures are negative. ASSESSMENT AND PLAN: A 47-year-old male who was seen earlier this morning with dental infection, questionable hard palate abscess, history of poor dentition and multiple missing teeth, polysubstance abuse and on antibiotics. Follow up with ENT and maxillofacial surgeon. Armaan Burgos MD
== END 2018-01-24 14:31 | disposition home or self-care (01) ==
LOC: ED 04:23 → ERH 05:29 → 5RSO 08:21
PROVIDERS: ADMIT Internal Medicine; ATTEND Hospitalist
DX: L02.01 Cutaneous abscess of face (principal); K12.2 Cellulitis and abscess of mouth; L03.211 Cellulitis of face; M27.2 Inflammatory conditions of jaws; S02.2XXA Fracture of nasal bones, initial encounter for closed fracture; R63.3 Feeding difficulties; K02.9 Dental caries, unspecified; R74.0 Nonspecific elevation of levels of transaminase and lactic acid dehydrogenase [LDH]; G47.00 Insomnia, unspecified; F14.10 Cocaine abuse, uncomplicated; F12.10 Cannabis abuse, uncomplicated; Z87.891 Personal history of nicotine dependence
CPT/HCPCS: 36415; 70486; 80053; 80074; 80324; 80345; 80346; 80349; 80353; 80358; 80361; 83735; 83992; 84100; 85025; 85027; 87040; 87389; 96374; 99283; C9113; G0378; J0295; J1650; J1885; J7030